=== PATIENT | female | born 1960 | race Caucasian/White ===

== ENCOUNTER → 2016-10-24 | Outpatient (CLI) | payer MEDICARE, OTHER ==
[~2016-10-24] MED LIST: ALBUAER3 INH; BACT800T5 PO; CREON24 PO; D-20TAB3 PO; DIAZ5 PO; MIRT30TA PO; MIRT45TA PO; MIRTA15 PO; OMEP20TA PO; PAXI20TA PO; PAXI40TA PO; PULM90IN INH; SUCR1TAB PO; VENTAER INH; VESI5TAB PO
== END ==
LOC: CLAB 08:14
PROVIDERS: ATTEND Physician Assistant Medical
DX: A04.8 Other specified bacterial intestinal infections (principal)
CPT/HCPCS: 87338

== ENCOUNTER → 2017-01-07 | Outpatient (CLI) | payer MEDICARE, OTHER ==
[~2017-01-07] MED LIST changes: -ALBUAER3 INH; -MIRT45TA PO; -PAXI20TA PO
[2017-01-07 11:28] LABS: AUTOMATED NEUTROPHIL # 6.1 TH/MM3 (1.8-7.7); BASOPHIL # 0.1 TH/MM3 (0-0.2); BASOPHIL % 1.1 % (0.0-2.0); EOSINOPHIL # 0.1 TH/MM3 (0-0.4); HEMATOCRIT 40.9 % (35.0-46.0); HEMO FLAGS DIFF FINAL; LYMPHOCYTE # 2.6 TH/MM3 (1.0-4.8); MEAN CELL VOLUME 83.4 FL (80.0-100.0); MEAN CORPUSCULAR HEMOGLOBIN 29.1 PG (27.0-34.0); MEAN CORPUSCULAR HGB CONC 34.9 % (32.0-36.0); MONO % 4.8 % (0.0-8.0); NEUT % 65.1 % (16.0-70.0); PLATELET COUNT 194 TH/MM3 (150-450); RED CELL DISTRIBUTION WIDTH 14.8 % (11.6-17.2); WHITE BLOOD COUNT 9.4 TH/MM3 (4.0-11.0)
[2017-01-07 12:09] LABS: ALKALINE PHOSPHATASE 114 U/L (45-117); ALT (GPT) 17 U/L (10-53); ANION GAP 8 MEQ/L (5-15); AST (GOT) 14 U/L (15-37); BLOOD UREA NITROGEN 8 MG/DL (7-18); CHLORIDE 103 MEQ/L (98-107); GLOMERULAR FILTRATION RATE 63 ML/MIN (>89); GLUCOSE,FASTING 93 MG/DL (74-99); HDL CHOLESTEROL 50.5 MG/DL (40.0-60.0); LDL CHOLESTEROL 117 MG/DL (0-99); POTASSIUM 4.9 MEQ/L (3.5-5.1); SODIUM (NA) 139 MEQ/L (136-145); TOTAL BILIRUBIN ADULT 0.3 MG/DL (0.2-1.0)
[2017-01-07 18:13] LABS: BLOOD, URINE SMALL (NEG); GLUCOSE,URINE NEG (NEG); KETONE, URINE NEG (NEG); NITRITE,URINE NEG (NEG); SQUAMOUS EPITHELIAL CELL URINE <1 /hpf (0-5); URINE COLOR LIGHT-YELLOW (YELLW/STRAW)
[2017-01-07 18:15] LABS: COMMENT (UR) CULT NOT INDICATED; CULTURE IF INDICATED CULT NOT INDICATED
== END ==
LOC: CLAB 10:57 → UNDOADMOB 18:12 → HCIN 18:12
PROVIDERS: ATTEND Family Medicine
DX: E78.5 Hyperlipidemia, unspecified (principal); N39.0 Urinary tract infection, site not specified; E55.9 Vitamin D deficiency, unspecified; R63.5 Abnormal weight gain
CPT/HCPCS: 36415; 80053; 80061; 81001; 82306; 84443; 85025; 99214; G0463

== ENCOUNTER 2017-04-19 17:42 | Emergency (ER) | payer MEDICARE, OTHER ==
[~2017-04-19] VITALS: Ht 170.2 cm; Wt 57.5 kg
[~2017-04-19 17:42] MED LIST changes: -BACT800T5 PO; -MIRT30TA PO; -SUCR1TAB PO
[2017-04-19 17:48] VITALS: BP 133/65; PULSE 95; RESP 17; TEMP 98.5; O2SAT 97
--- NOTE | 2017-04-19 18:13 | PD ---
HPI Chief Complaint: Laceration/Skin Injury Time Seen by Provider: 17:58 Travel History International Travel<30 days: No Contact w/Intl Traveler<30days: No Traveled to known affect area: No History of Present Illness HPI 56-year-old female here by private vehicle for evaluation of left ring finger laceration. About 4 hours ago the patient was cutting a zip tie with a knife when she cut the distal end of her finger. Since that time she has been bleeding and has been unable to control the bleeding. She is not on any antiplatelets or anticoagulants. Date of last tetanus is unknown. No other injuries. PFSH Past Medical History Anxiety: Yes Depression: Yes Cancer: Yes (LUNG) COPD: Yes Diminished Hearing: No GERD: Yes Musculoskeletal: Yes (chronic back pain) Respiratory: Yes (LUNG CA) Menopausal: Yes Past Surgical History Cholecystectomy: Yes (sep 2013) Thoracic Surgery: Yes (RIGHT UPPER LOBECTOMY) Other Surgery: Yes (LEFT BREAST LUMPS REMOVED) Social History Alcohol Use: No Tobacco Use: Yes (1 PPD) Substance Use: No Allergies-Medications (Allergen,Severity, Reaction): Coded Allergies: Oxycodone (Verified Adverse Reaction, Severe, Extreme vomiting, 04/19/17) Reported Meds & Prescriptions Reported Meds & Active Scripts Active D-2000 Maximum Strength (Cholecalciferol) 2,000 Unit Tab 2,000 Units PO DAILY Pulmicort Flexhaler (Budesonide Powder Inh) 90 Mcg/Act Inhp 90 Mcg INH Q12HR Valium (Diazepam) 5 Mg Tab 5 Mg PO QID PRN Ventolin Hfa 18 GM Inh (Albuterol Sulfate) 90 Mcg/Act Aer 2 Puff INH Q4-6H PRN Creon (Amylase/Lipase/Protease) 24,000-76,000-120,000 Units Cap 1 Cap PO TIDPC Vesicare (Solifenacin) 5 Mg Tab 5 Mg PO DAILY Reported Paxil (Paroxetine HCl) 30 Mg Tab 40 Mg PO DAILY Omeprazole 20 Mg Tab Mg PO DAILY Review of Systems Except as stated in HPI: all other systems reviewed are Neg Physical Exam Narrative GENERAL: Well-developed, well-nourished, awake, alert, no apparent distress. SKIN: Left fourth finger with lateral/distal/posterior tip avulsion with partial nail avulsion with active arterial bleeding. Finger tourniquet was applied with cessation of bleeding. Wound evaluated in a bloodless field and is moderate depth, no bone or tendon exposure. CARDIOVASCULAR: Regular rate and rhythm. MUSCULOSKELETAL: Skin exam as above. Normal range of motion in left ring finger. No obvious deformities. No clubbing. No cyanosis. No edema. NEUROLOGICAL: Awake and alert. No obvious cranial nerve deficits. Motor grossly within normal limits. Normal speech. PSYCHIATRIC: Appropriate mood and affect; insight and judgment normal. Data Data Last Documented VS Vital Signs Date Time Temp Pulse Resp B/P Pulse Ox O2 Delivery O2 Flow Rate FiO2 04/19/17 19:00 99.1 82 18 129/64 96 Room Air Orders Silver Nitrate Applicators (Silver Nitra (04/19/17 18:15) Tetanus/Diphtheria Tox Adult (Tetanus/Di (04/19/17 18:15) Cephalexin (Keflex) (04/19/17 19:15) Acetamin-Hydrocod 325-10 Mg ([place] 10-32 (04/19/17 19:45) MDM Medical Decision Making Medical Screen Exam Complete: Yes Emergency Medical Condition: Yes Differential Diagnosis Left ring finger avulsion/laceration, arterial laceration Narrative Course Vital signs reviewed. The patient has a left distal ring finger avulsion with arterial bleeding. Finger tourniquet applied with hemostasis, and the avulsion was evaluated in a bloodless field. This avulsion is of moderate depth, no bone, tendon, or ligament exposure. While tourniquet was applied, silver nitrate was applied to the wound. 20 minutes later the tourniquet was removed, and there was still slight venous oozing. Tourniquet was then reapplied and another layer of silver nitrate was applied followed by 2 layers of Dermabond. Another 20 minutes was allowed to elapse before finger tourniquet was removed, and upon removal, hemostasis was achieved. Tetanus was updated. Patient was also given a dose of Keflex. She was observed in the emergency department without any further bleeding. Capillary refill to distal left fourth finger is normal. She is stable for discharge home with outpatient follow-up with hand surgeon Dr. Toscano this week. She was informed on when to return to the emergency department. She verbalizes understanding and agreement with plan. Procedures Procedure Narrative Left ring fingertip avulsion repair: Finger tourniquet applied with hemostasis, and the avulsion was evaluated in a bloodless field. This avulsion is of moderate depth, no bone, tendon, or ligament exposure. While tourniquet was applied, silver nitrate was applied to the wound. 20 minutes later the tourniquet was removed, and there was still slight venous oozing. Tourniquet was then reapplied and another layer of silver nitrate was applied followed by 2 layers of Dermabond. Another 20 minutes was allowed to elapse before finger tourniquet was removed, and upon removal, hemostasis was achieved. Diagnosis Primary Impression: Fingertip avulsion Qualified Code: S61.209A - Avulsion of fingertip, initial encounter Referrals: Greg Toscano MD 3 days Hand surgeon Additional Instructions: Follow-up with hand surgeon Dr. Toscano or hand surgeon of your choice this week. Return to the emergency department for worsening symptoms or any other concerns. Scripts Hydrocodone-Acetaminophen (Lortab)10-325 Mg Tab1 Tab PO Q6H PRN (PAIN) #15 TAB Ref 0 Prov:Kanu Cedeno MD 04/19/17 Cephalexin (Keflex)500 Mg Euj606 Mg PO Q8H #30 CAP Ref 0 Prov:Kanu Cedeno MD 04/19/17 Disposition: 01 DISCHARGE HOME Condition: Stable Kanu Cedeno MD Apr 19, 2017 18:13
[2017-04-19] MEDS ORDERED: SILVER NITR/POTASSIUM NITRATE APPLICATORS TOPICAL ONE (18:15)
[2017-04-19] MEDS ORDERED: TETANUS/DIPHTHERIA TOXOID ADULT 0.5 ML VIAL IM ONE (18:15)
[2017-04-19] MEDS ORDERED: PAXI30TA7 PO (18:16)
[2017-04-19 19:00] VITALS: BP 129/64; PULSE 82; RESP 18; TEMP 99.1; O2SAT 96
[2017-04-19] MEDS ORDERED: CEPHALEXIN MONOHYDRATE 500 MG CAP PO ONE (19:15)
[2017-04-19 19:20] VITALS: BP 129/64; PULSE 82; RESP 18; TEMP 97.9; O2SAT 98
[2017-04-19] MEDS ORDERED: ACETAMINOPHEN/HYDROcodone 325 MG/10 MG TAB PO ONE (19:45)
[2017-04-19] MEDS ORDERED: HYDR-3535 PO ×2 (20:02→21:05)
[2017-04-19] MEDS ORDERED: CEPH-460 PO ×2 (20:02→21:05)
[2017-04-19 20:07] VITALS: BP 134/86; PULSE 79; RESP 18; O2SAT 98
[2017-04-28] MEDS ORDERED: HYDR-3533 PO (10:59)
[2017-04-28] MEDS ORDERED: VESI5TAB PO (11:46)
== END 2017-04-19 21:20 | disposition home or self-care (01) ==
LOC: PHED 17:42
DX: S61.215A Laceration without foreign body of left ring finger without damage to nail, initial encounter (principal); W26.0XXA Contact with knife, initial encounter; Y93.89 Activity, other specified; Z23 Encounter for immunization
CPT/HCPCS: 12001; 90471; 90714

== ENCOUNTER → 2017-06-30 | Day surgery (SDC) | payer MEDICARE, OTHER ==
[~2017-06-30] MED LIST changes: +BUPIVACAINE/EPINEPHRINE 0.25% 50 ML VIAL ONE; +LACTATED RINGER'S 1000 ML INJ 1,000 ML ONE; +MIDAZOLAM HCL 2 MG/2 ML VIAL ONE; -MIRTA15 PO; +MORPHINE SULFATE 4 MG/ML INJ ONE; +ONDANSETRON HCL 4 MG/2 ML VIAL IV PUSH ONE; +PAXI30TA7 PO; -PAXI40TA PO; +PNEU13P IM; +PROPOFOL 200 MG/20 ML AMP IV ONE; +QUET1TAB7 PO; +ceFAZolin 2 GM PREMIX 50 ML ONE
--- NOTE | 2017-06-30 13:48 | TN ---
cc: ESTIVEN VILLAFANA M.D. DATE OF SURGERY: 06/30/2017 PREOPERATIVE DIAGNOSIS Mammographic abnormality, right breast. POSTOPERATIVE DIAGNOSIS Mammographic abnormality, right breast. PROCEDURE PERFORMED Needle-localized right breast biopsy. SURGEON Estiven Villafana. CLAIMS ATTORNEY EZEQUIEL Palomino. ANESTHESIA General LMA. COMPLICATIONS None. INDICATION FOR PROCEDURE Ms. Atkinson is a very pleasant 56-year-old female who is known to have a mammographic abnormality in the right breast. She was offered biopsy versus observation. The patient elected biopsy. She was offered excisional biopsy versus core biopsy. The patient requested excisional biopsy so the mass could be completely excised. She was referred for surgical evaluation. Risks and benefits of the procedure was discussed with her and she was agreeable. DETAILS OF PROCEDURE The patient was identified, brought to the operating room and placed supine on the operating table. After adequate general anesthesia was achieved with LMA, the right breast was prepped and draped in a standard surgical fashion. 0.25% Marcaine was injected along the periareolar space and the medial quadrant. A periareolar incision was made from 1 o'clock to 4 o'clock. The patient had a wire localization from the 3 o'clock position in the right breast. Dissection proceeded down to the subcutaneous tissue. Dissection proceeded down to the wire. Once the wire was identified it was transected and brought into the skin. The wire was then followed to its base. What appeared to be a fibroadenoma type of mass was identified with the wire and excised. All breast tissue around the wire was excised at the level of the base. It was then brought out, labeled with a short stitch superior and the guidewire demarcated the medial border. There was a palpable mass within the specimen. It was sent down to radiology. Dr. Huan Jones confirmed the mass present within the specimen. The wound was then irrigated with normal saline solution. The wound was then injected with 10 cc of local anesthetic. The wound was then closed in two layers using 4-0 Vicryl. Sterile dressings were applied and the patient was awakened and brought to Recovery in stable condition. Please note the EZEQUIEL anesthetic assistant was medically necessary due to her extensive surgical knowledge and understanding of my surgical technique. MD JUWAN Cruz /1:30 PM /1:41 PM
== END | disposition home or self-care (01) ==
LOC: ESDC 09:21
PROVIDERS: ATTEND Surgery Trauma Surgery
DX: R92.8 Other abnormal and inconclusive findings on diagnostic imaging of breast (principal)
CPT/HCPCS: 00400; 19125; 88307; J0690; J2250; J2405; J3010; J7120; J2270

== ENCOUNTER → 2017-10-14 | Outpatient (CLI) | payer MEDICARE, OTHER ==
[~2017-10-14] MED LIST changes: -BUPIVACAINE/EPINEPHRINE 0.25% 50 ML VIAL ONE; +CIPR500T2 PO; -LACTATED RINGER'S 1000 ML INJ 1,000 ML ONE; -MIDAZOLAM HCL 2 MG/2 ML VIAL ONE; -MORPHINE SULFATE 4 MG/ML INJ ONE; -OMEP20TA PO; +OMEP20TA93 PO; -ONDANSETRON HCL 4 MG/2 ML VIAL IV PUSH ONE; -PROPOFOL 200 MG/20 ML AMP IV ONE; -VESI5TAB PO; +VESI5TAB2 PO; -ceFAZolin 2 GM PREMIX 50 ML ONE
[2017-10-14 11:02] LABS: AUTOMATED NEUTROPHIL # 6.8 TH/MM3 (1.8-7.7); BASOPHIL # 0.1 TH/MM3 (0-0.2); EOSINOPHIL # 0.1 TH/MM3 (0-0.4); EOSINOPHIL % 0.6 % (0.0-4.0); HEMATOCRIT 43.6 % (35.0-46.0); HEMOGLOBIN 15.1 GM/DL (11.6-15.3); LYMPH % 25.6 % (9.0-44.0); LYMPHOCYTE # 2.6 TH/MM3 (1.0-4.8); MEAN CELL VOLUME 83.9 FL (80.0-100.0); MEAN CORPUSCULAR HEMOGLOBIN 29.1 PG (27.0-34.0); MEAN CORPUSCULAR HGB CONC 34.7 % (32.0-36.0); MEAN PLATELET VOLUME 8.5 FL (7.0-11.0); MONO % 5.2 % (0.0-8.0); MONOCYTE # 0.5 TH/MM3 (0-0.9); NEUT % 67.6 % (16.0-70.0); PLATELET COUNT 238 TH/MM3 (150-450); RED CELL DISTRIBUTION WIDTH 14.8 % (11.6-17.2); WHITE BLOOD COUNT 10.1 TH/MM3 (4.0-11.0)
[2017-10-14 11:19] LABS: ALBUMIN 4.4 GM/DL (3.4-5.0); ALT (GPT) 17 U/L (10-53); AST (GOT) 17 U/L (15-37); BICARBONATE 27.9 MEQ/L (21.0-32.0); BLOOD UREA NITROGEN 9 MG/DL (7-18); CALCIUM 9.9 MG/DL (8.5-10.1); CHLORIDE 102 MEQ/L (98-107); CHOLESTEROL 194 MG/DL (120-200); CREATININE 0.86 MG/DL (0.50-1.00); GLOMERULAR FILTRATION RATE 68 ML/MIN (>89); GLUCOSE,FASTING 102 MG/DL (74-99); SODIUM (NA) 136 MEQ/L (136-145); TRIGLYCERIDES 110 MG/DL (42-150)
[2017-10-14 11:29] LABS: ALKALINE PHOSPHATASE 110 U/L (45-117); CHOLESTEROL/ HDL RATIO 3.19 RATIO; HDL CHOLESTEROL 60.7 MG/DL (40.0-60.0); LDL CHOLESTEROL 111 MG/DL (0-99); TOTAL BILIRUBIN ADULT 0.4 MG/DL (0.2-1.0); TOTAL PROTEIN 8.7 GM/DL (6.4-8.2)
== END ==
LOC: CLAB 10:37
PROVIDERS: ATTEND Family Medicine
DX: E55.9 Vitamin D deficiency, unspecified (principal); K31.84 Gastroparesis; F41.8 Other specified anxiety disorders; K86.89 Other specified diseases of pancreas
CPT/HCPCS: 36415; 80053; 80061; 82306; 84436; 84443; 85025